=== PATIENT | female | born 1965 | race Caucasian/White ===

== ENCOUNTER → 2018-03-24 11:40 | Outpatient (CLI) | payer OTHER, SELFPAY ==
--- NOTE | 2018-03-24 11:45 | RAD_ITS ---
STUDY: X-RAY - RIGHT WRIST REASON FOR EXAM: Female, 53 years old. Right wrist pain TECHNIQUE: 3 view(s) of the wrist were obtained. COMPARISON: None. FINDINGS: Normal visualized distal radius and ulna. Normal radiocarpal articulation. Normal distal radioulnar articulation. Normal carpal bones. Normal carpal articulations. Normal carpometacarpal articulation of the thumb. Normal second through fifth carpometacarpal articulations. Normal visualized metacarpal bones. The soft tissue structures are unremarkable. RAD/Wrist min 3 Views IMPRESSION: Normal x-ray examination of the wrist. Electronically Signed: David Arango DO at 13:05 EST Tel , Service support ,
== END ==
PROVIDERS: Family Provider Family Medicine; PCP Family Medicine; Referring Provider Family Medicine; Visit Provider Family Medicine
DX: M25.531 Pain in right wrist (principal)
CPT/HCPCS: 73110

== ENCOUNTER → 2018-04-23 14:31 | Outpatient (CLI) | payer OTHER, SELFPAY ==
[2017-03-05 14:44] VITALS: BMI 26.2
--- NOTE | 2018-04-23 14:35 | BI_ITS ---
MAMMOGRAPHY - BILATERAL SCREENING REASON FOR EXAM: Female, 53 years old. Routine annual screening examination. PERTINENT HISTORY: Mother with breast cancer. TECHNIQUE: Digital bilateral breast carol (3D mammographic acquisition) in the CC and MLO projections. 2-D mediolateral oblique (MLO) and craniocaudad (CC) views of both breasts were obtained. CAD: Full Field Digital Mammography with Computer Added Detection was performed. COMPARISON: Comparison is made with prior study dated December 10, 2016 and November 08, 2015. FINDINGS: Breast Composition: The breasts are extremely dense, which lowers the sensitivity of mammography. There are no dominant masses or suspicious calcifications. Previously seen 1.9 cm x 2.2 cm nodule in the deep slightly upper lateral portion of the right breast is not seen at this time. No other significant abnormalities are identified. BI/SCREENING MAMM (CAD), BILAT IMPRESSION: Stable bilateral screening mammogram. Yearly follow-up mammogram recommended. (A) ASSESSMENT CATEGORY: BIRADS Category 2: Benign. A letter regarding these results will be sent to the patient by the facility within 30 days. Approximately 10% of breast cancers are not detected by mammography. A normal mammogram should not delay biopsy of a clinically suspicious abnormality. [id number] Electronically Signed: Sriram Jean MD at 9:15 EST , Service support ,
== END ==
PROVIDERS: Family Provider Family Medicine; PCP Family Medicine; Referring Provider Family Medicine; Visit Provider Family Medicine
DX: Z12.31 Encounter for screening mammogram for malignant neoplasm of breast (principal)
CPT/HCPCS: 77063; 77067

== ENCOUNTER → 2019-04-25 07:56 | Outpatient (CLI) | payer OTHER, SELFPAY ==
--- NOTE | 2019-04-25 07:59 | BI_ITS ---
MAMMOGRAPHY - BILATERAL SCREENING REASON FOR EXAM: Female, 54 years old. Routine annual screening examination. PERTINENT HISTORY: Non-contributory. Prior right breast cyst aspiration. TECHNIQUE: Digital bilateral breast gumaro (3D mammographic acquisition) in the CC and MLO projections. 2-D mediolateral oblique (MLO) and craniocaudad (CC) views of both breasts were obtained. CAD: Full Field Digital Mammography with Computer Added Detection was performed. COMPARISON: Comparison is made with prior study dated April 23, 2018 and December 10, 2006 FINDINGS: Breast Composition: The breasts are extremely dense, which lowers the sensitivity of mammography. There are no dominant masses or suspicious calcifications. No other significant abnormalities are identified. There has been no significant change since the prior study. BI/SCREEN MAMM (CAD) W/GUMARO BILAT IMPRESSION: Stable bilateral screening mammogram. Yearly follow-up mammogram recommended. (A) ASSESSMENT CATEGORY: BIRADS Category 1: Negative. A letter regarding these results will be sent to the patient by the facility within 30 days. Approximately 10% of breast cancers are not detected by mammography. A normal mammogram should not delay biopsy of a clinically suspicious abnormality. [id number] Electronically Signed: Sriram Jean, at 9:55 EST , Service support ,
== END ==
PROVIDERS: Family Provider Family Medicine; PCP Family Medicine; Referring Provider Family Medicine; Visit Provider Family Medicine
DX: Z12.31 Encounter for screening mammogram for malignant neoplasm of breast (principal)
CPT/HCPCS: 77063; 77067

== ENCOUNTER → 2019-10-19 14:33 | Outpatient (CLI) | payer OTHER, SELFPAY ==
[2017-03-05 14:44] VITALS: BMI 26.2
[2019-10-19 17:56] LABS: Anion Gap 5 (5-15); BUN 17 mg/dL (7-18); BUN/Creat Ratio 24.1 RATIO (10-20); Calcium,Total 9.4 mg/dL (8.5-10.1); Chloride 103 mmol/L (98-107); EST Glomerular Filtration Rate 92 mL/min (>60); Est Glom Filt Rate - Afr Amer 112 mL/min (>60); Glucose 98 mg/dL (74-106); Potassium 3.7 mmol/L (3.5-5.1); Sodium Level 137 mmol/L (136-145)
== END ==
PROVIDERS: PCP Family Medicine; Referring Provider Family Medicine; Visit Provider Family Medicine
DX: R03.0 Elevated blood-pressure reading, without diagnosis of hypertension (principal)
CPT/HCPCS: 36415; 80048

== ENCOUNTER → 2019-11-16 16:53 | Outpatient (CLI) | payer OTHER, SELFPAY ==
[2017-03-05 14:44] VITALS: BMI 26.2
[2019-11-16 19:04] LABS: T4 Total, Thyroxin 6.3 ug/dL (4.8-13.9)
== END ==
PROVIDERS: PCP Family Medicine; Referring Provider Family Medicine; Visit Provider Family Medicine
DX: F41.0 Panic disorder [episodic paroxysmal anxiety] (principal)
CPT/HCPCS: 36415; 84436; 84443

== ENCOUNTER → 2020-02-22 | Outpatient (CLI) | payer OTHER, SELFPAY ==
[2017-03-05 14:44] VITALS: BMI 26.2
== END | disposition home or self-care (01) ==
PROVIDERS: PCP Family Medicine; Referring Provider Family Medicine; Visit Provider Family Medicine
DX: J20.9 Acute bronchitis, unspecified (principal)
CPT/HCPCS: 87635; U0003

== ENCOUNTER → 2020-04-05 13:07 | Outpatient (CLI) | payer OTHER, SELFPAY ==
[2017-03-05 14:44] VITALS: BMI 26.2
--- NOTE | 2020-04-05 13:10 | RAD_ITS ---
STUDY: X-RAY CHEST REASON FOR EXAM: Female, 55 years old. Cough. Acute bronchitis. TECHNIQUE: PA and lateral views of the chest. COMPARISON: 03/06/2017. FINDINGS: The lungs are well expanded. There is mild perihilar bronchial thickening. There is no demonstrated pleural abnormality. Normal size heart. Normal mediastinum and diego. Normal visualized pulmonary arteries. Normal visualized aortic arch and descending thoracic aorta. Normal visualized thoracic spine. Normal visualized ribs, clavicles, and shoulders. There is no demonstrated abnormality of the visualized soft tissue structures of the upper abdomen. RAD/Chest PA and Lateral IMPRESSION: Bronchitis versus reactive airway disease. Electronically Signed: Billy Wesley DO at 19:47 EST Tel [phone], Service support ,
== END ==
LOC: MTRAD 13:09
PROVIDERS: PCP Family Medicine; Visit Provider Family Medicine
DX: J20.9 Acute bronchitis, unspecified (principal)
CPT/HCPCS: 71046

== ENCOUNTER → 2020-04-19 | Outpatient (CLI) | payer OTHER, SELFPAY | END | disposition home or self-care (01) | LOC: LABSPEC 11:11 | PROVIDERS: PCP Family Medicine; Referring Provider Family Medicine; Visit Provider Family Medicine | DX: R05 Cough (principal) | CPT/HCPCS: 87070; 87205 ==

== ENCOUNTER 2020-06-14 08:06 | Outpatient (RCR) | payer OTHER, SELFPAY ==
[2017-03-05 14:44] VITALS: BMI 26.2
[2020-06-14] MEDS: COVID-19 VACC, MRNA(PFIZER)/PF 30 MCG/0.3 ML SYRINGE IM (08:14)
[2020-07-05] MEDS: COVID-19 VACC, MRNA(PFIZER)/PF 30 MCG/0.3 ML SYRINGE IM (08:02)
== END 2020-06-14 23:59 ==
LOC: IMMUN 08:06
PROVIDERS: PCP Family Medicine; Visit Provider Family Medicine
DX: Z23 Encounter for immunization (principal)
CPT/HCPCS: 0001A; 0002A; 91300

== ENCOUNTER → 2020-08-09 07:56 | Outpatient (CLI) | payer OTHER, SELFPAY ==
--- NOTE | 2020-08-09 07:57 | BI_ITS ---
MAMMOGRAPHY - BILATERAL SCREENING REASON FOR EXAM: Female, 55 years old. Routine annual screening examination. PERTINENT HISTORY: Mother with breast cancer. TECHNIQUE: Digital bilateral breast carol (3D mammographic acquisition) in the CC and MLO projections. 2-D mediolateral oblique (MLO) and craniocaudad (CC) views of both breasts were obtained. CAD: Full Field Digital Mammography with Computer Added Detection was performed. COMPARISON: Comparison is made with prior study dated 10/24/2019 and 04/23/2018. FINDINGS: Breast Composition: The breasts are heterogeneously dense, which may obscure small masses. There are no dominant masses or suspicious calcifications. No other significant abnormalities are identified. There has been no significant change since the prior study. BI/SCREENING MAMM (CAD), BILAT IMPRESSION: Stable bilateral screening mammogram. Yearly follow-up mammogram recommended. (A) ASSESSMENT CATEGORY: BIRADS Category 1: Negative. A letter regarding these results will be sent to the patient by the facility within 30 days. Approximately 10% of breast cancers are not detected by mammography. A normal mammogram should not delay biopsy of a clinically suspicious abnormality. [id number] Electronically Signed: Sriram Jean MD at 8:59 EDT , Service support ,
== END ==
PROVIDERS: PCP Family Medicine; Referring Provider Family Medicine; Visit Provider Family Medicine
DX: Z12.31 Encounter for screening mammogram for malignant neoplasm of breast (principal); Z80.3 Family history of malignant neoplasm of breast
CPT/HCPCS: 77067

== ENCOUNTER → 2021-09-17 | Outpatient (CLI) | payer OTHER, SELFPAY ==
[2021-09-17 09:51] LABS: Absolute Lymphocyte Count 1.52 X10^3/uL (0.83-4.51); Absolute Neutrophil Count 3.5 X10^3/uL (2.0-7.7); Basophil# 0.02 X10^3/uL; Basophil% 0.4 % (0-1); Eosinophil# 0.02 X10^3/uL; Eosinophils% 0.4 % (0-5); Hematocrit 39.5 % (37-47); Hemoglobin 13.6 g/dL (12.0-15.0); Lymphocyte # 1.52 X10^3/ul (0.83-4.51); Lymphocyte % 27.8 % (19-41); Mean Corp Hgb Conc 34.4 g/dL (32-36); Mean Corpuscular Volume 92.9 fL (81-99); Mean Platelet Vol. 9.2 fl (6.2-12.0); Monocyte# 0.37 X10^3/uL; Monocyte% 6.8 % (0-10); NRBC Flagged by Analyzer 0 % (0-5); Neutrophil # 3.52 X10^3/uL (2.7-7.7); Neutrophil % 64.4 % (47-70); Platelet Count 268 K/mm3 (150-450); RBC Distribution Width CV 12.9 % (11.6-14.6); RBC Distribution Width SD 43.8 fl (35.1-43.9); Red Blood Count 4.25 M/mm3 (4.2-5.4); White Blood Count 5.5 K/mm3 (4.4-11.0)
[2021-09-17 10:25] LABS: Vitamin B12 271 pg/mL (211-911); Vitamin D,25 Hydroxy 29.7 ng/mL
[2021-09-17 10:34] LABS: ALB/GLOB Ratio 1.1 RATIO (0.9-2.4); AST(SGOT) 23 U/L (15-37); Alanine Aminotransfer ALT/SGPT 31 U/L (13-56); Albumin, Serum 3.9 g/dL (3.2-5.0); Alkaline Phosphatase 35 U/L (45-117); Anion Gap 9 (5-15); BUN 11 mg/dL (7-18); BUN/Creat Ratio 16.2 RATIO (10-20); Calcium,Total 9.4 mg/dL (8.5-10.1); Chloride 103 mmol/L (98-107); Cholesterol 184 mg/dL (200); Creatinine, Serum 0.68 mg/dL (0.55-1.02); EST Glomerular Filtration Rate 95 mL/min (>60); Est Glom Filt Rate - Afr Amer 115 mL/min (>60); Globulin 3.6 g/dL (2.2-4.2); Glucose 97 mg/dL (74-106); High Density Lipoprotein 80 mg/dL; Protein, Total 7.5 g/dL (6.4-8.2); Sodium Level 138 mmol/L (136-145); Thyroid Stim Hormone (TSH) 2.53 uIU/mL (0.358-3.74); Triglycerides 146 mg/dL; Very Low Density Lipoprotein 29 mg/dL (5-40)
== END | disposition home or self-care (01) ==
LOC: MFPLAB 08:54
PROVIDERS: PCP Family Medicine; Referring Provider Family Medicine; Visit Provider Nurse Practitioner Family
DX: E78.5 Hyperlipidemia, unspecified (principal); R53.83 Other fatigue
CPT/HCPCS: 36415; 80053; 80061; 82306; 82607; 84443; 85025

== ENCOUNTER → 2021-09-27 | Outpatient (CLI) | payer OTHER, SELFPAY ==
--- NOTE | 2021-09-27 07:50 | BI_ITS ---
MAMMOGRAPHY - BILATERAL SCREENING REASON FOR EXAM: Female, 56 years old. Routine annual screening examination. PERTINENT HISTORY: Mother with breast cancer. TECHNIQUE: Digital bilateral breast gumaro (3D mammographic acquisition) in the CC and MLO projections. 2-D mediolateral oblique (MLO) and craniocaudad (CC) views of both breasts were obtained. CAD: Full Field Digital Mammography with Computer Added Detection was performed. COMPARISON: Comparison is made with prior study dated 08/09/2020 and 04/25/2019. FINDINGS: Breast Composition: The breasts are extremely dense, which lowers the sensitivity of mammography. There are no dominant masses or suspicious calcifications. No other significant abnormalities are identified. There has been no significant change since the prior study. BI/SCRN MAMM (CAD)W/GUMARO BILAT IMPRESSION: Stable bilateral screening mammogram. Yearly follow-up mammogram recommended. (A) ASSESSMENT CATEGORY: BIRADS Category 1: Negative. A letter regarding these results will be sent to the patient by the facility within 30 days. Approximately 10% of breast cancers are not detected by mammography. A normal mammogram should not delay biopsy of a clinically suspicious abnormality. [id number] Electronically Signed: Sriram Jean MD at 8:34 EDT ,
== END | disposition home or self-care (01) ==
LOC: OPBI 07:49
PROVIDERS: PCP Family Medicine; Referring Provider Family Medicine; Visit Provider Family Medicine
DX: Z12.31 Encounter for screening mammogram for malignant neoplasm of breast (principal); Z80.3 Family history of malignant neoplasm of breast
CPT/HCPCS: 77063; 77067

== ENCOUNTER → 2023-01-16 | Outpatient (CLI) | payer OTHER, SELFPAY ==
--- NOTE | 2023-01-16 07:56 | BI_ITS ---
MAMMOGRAPHY - BILATERAL SCREENING REASON FOR EXAM: Female, 57 years old. Routine annual screening examination. PERTINENT HISTORY: Mother with breast cancer. TECHNIQUE: Digital bilateral breast gumaro (3D mammographic acquisition) in the CC and MLO projections. 2-D mediolateral oblique (MLO) and craniocaudad (CC) views of both breasts were obtained. CAD: Full Field Digital Mammography with Computer Added Detection was performed. COMPARISON: Comparison is made with prior study dated September 27, 2021 and August 09, 2020. FINDINGS: Breast Composition: The breasts are extremely dense, which lowers the sensitivity of mammography. There are no dominant masses or suspicious calcifications. No other significant abnormalities are identified. There has been no significant change since the prior study. BI/SCRN MAMM (CAD)W/GUMARO BILAT IMPRESSION: Stable bilateral screening mammogram. Yearly follow-up mammogram recommended. (A) ASSESSMENT CATEGORY: BIRADS Category 1: Negative. A letter regarding these results will be sent to the patient by the facility within 30 days. Approximately 10% of breast cancers are not detected by mammography. A normal mammogram should not delay biopsy of a clinically suspicious abnormality. [id number] Electronically Signed: Sriram Jean MD at 10:43 EDT ,
== END | disposition home or self-care (01) ==
PROVIDERS: PCP Family Medicine; Referring Provider Family Medicine; Visit Provider Family Medicine
DX: Z12.31 Encounter for screening mammogram for malignant neoplasm of breast (principal); Z80.3 Family history of malignant neoplasm of breast
CPT/HCPCS: 77063; 77067

== ENCOUNTER → 2024-01-12 | Outpatient (CLI) | payer OTHER, SELFPAY ==
[2024-01-12 10:54] LABS: AST(SGOT) 11 U/L (15-37); Alanine Aminotransfer ALT/SGPT 19 U/L (13-56); Cholesterol 190 mg/dL (200); High Density Lipoprotein 80 mg/dL; Triglycerides 141 mg/dL; Very Low Density Lipoprotein 28 mg/dL (5-40)
== END | disposition home or self-care (01) ==
LOC: MTLAB 08:05
PROVIDERS: PCP Family Medicine; Referring Provider Family Medicine; Visit Provider Family Medicine
DX: E78.5 Hyperlipidemia, unspecified (principal)
CPT/HCPCS: 36415; 80061; 84450; 84460

== ENCOUNTER → 2024-01-18 | Outpatient (CLI) | payer OTHER, SELFPAY ==
--- NOTE | 2024-01-18 07:42 | BI_ITS ---
MAMMOGRAPHY - BILATERAL SCREENING REASON FOR EXAM: Female, 58 years old. Routine annual screening examination. PERTINENT HISTORY: Mother with breast cancer. Uncle with breast cancer. TECHNIQUE: Digital bilateral breast gumaro (3D mammographic acquisition) in the CC and MLO projections. 2-D mediolateral oblique (MLO) and craniocaudad (CC) views of both breasts were obtained. CAD: Full Field Digital Mammography with Computer Added Detection was performed. COMPARISON: Comparison is made with prior study dated January 16, 2023 and September 27, 2021. FINDINGS: Breast Composition: The breasts are extremely dense, which lowers the sensitivity of mammography. There are no dominant masses or suspicious calcifications. No other significant abnormalities are identified. There has been no significant change since the prior study. BI/SCRN MAMM (CAD)W/GUMARO BILAT IMPRESSION: Stable bilateral screening mammogram. Yearly follow-up mammogram recommended. (A) ASSESSMENT CATEGORY: BIRADS Category 1: Negative. A letter regarding these results will be sent to the patient by the facility within 30 days. Approximately 10% of breast cancers are not detected by mammography. A normal mammogram should not delay biopsy of a clinically suspicious abnormality. [id number] Electronically Signed: Sriram Jean MD at 11:03 EDT ,
== END | disposition home or self-care (01) ==
LOC: OPBI 07:42
PROVIDERS: PCP Family Medicine; Referring Provider Family Medicine; Visit Provider Family Medicine
DX: Z12.31 Encounter for screening mammogram for malignant neoplasm of breast (principal)
CPT/HCPCS: 77063; 77067

== ENCOUNTER 2024-10-09 03:36 | Emergency (ER) | payer OTHER, SELFPAY ==
[2024-10-09 03:36] VITALS: BP 194/88; PULSE 94; RESP 16; TEMP 36.6; O2SAT 99; BMI 29.2
--- NOTE | 2024-10-09 03:38 | EDS_ITS ---
HPI History of Present Illness Chief Complaint: Allergic Reaction Narrative Narrative: Chief complaint and HPI: Urticaria and allergic reaction. 59-year-old female with past medical history of anxiety, depression, fibromyalgia presents for evaluation of urticaria and allergic reaction. Patient states that she woke up this evening itching. States she realized she had hives all over her body. Triage note states that she felt like her throat is tightening however she denies this to me. She states instead she feels chest tightness. She denies any difficulty swallowing, difficulty tolerating secretions, hoarseness, wheezing, stridor, nausea, vomiting, abdominal pain. Patient denies any skin care products or soaps. Denies any new contact with plants or animals. Review of systems: See HPI Medications: As listed on the chart Allergies: As listed on the chart PFSH: Per chart Vital signs: As listed on the chart. Reviewed. Physical exam: Gen: A&O x3, anxious Head: Normocephalic, atraumatic Eyes: No sclera icterus, conjunctiva clear, PERRL, EOMI ENT: Moist mucous membranes, posterior oropharynx unremarkable without erythema or swelling, uvula midline, tonsils not enlarged, tongue not enlarged, no submandibular swelling, tolerating secretions Neck: Trachea midline, No JVD, Full ROM, no swelling CV: RRR, no murmurs, no peripheral edema Resp: Lungs CTA BL, no w/r/c, no stridor GI: Abd soft, non-distended, non-tender, no r/r/g Musc: Full ROM, no deformity Skin: Warm, dry, urticaria diffusely on the body Neuro: Alert, oriented, grossly intact, sensation intact Psych: Cooperative, appropriate mood and affect [facility] Home Medications ?Medication ?Instructions ?Recorded ?Last Taken ?Type fluoxetine 20 mg capsule 20 mg PO DAILY 07/02/16 12/0 10/13 08:00 History multivitamin (Daily Multiple 1 ea PO DAILY 02/26/17 Un known History tablet) docusate sodium 100 mg capsule 100 mg PO BID #30 caps 03/05/17 Unknown Rx ibuprofen 800 mg tablet 800 mg PO TID PRN PRN Cramp #60 03/05/17 Unknown Rx tabs oxycodone-acetaminophen 5 mg-325 1 - 2 tab PO Q4H PRN PRN Pain #30 03/05/17 Unknown Rx mg tablet tabs phenazopyridine 100 mg tablet 100 mg PO DAILY 03/05/17 03/05/17 08:00 History epinephrine 0.3 mg/0.3 mL 0.3 mg (0.3 mL) IM Q10M PRN PRN 10/09/24 Unknown Rx injection, auto-injector (EpiPen anaphylaxis 1 day #2 ea 2-Nikunj) famotidine 20 mg tablet (Pepcid) 20 mg PO DAILY 5 days #5 tabs 10/09/24 Unknown Rx prednisone 20 mg tablet 40 mg (2 x 20 mg) PO DAILY 5 days 10/09/24 Unknown Rx #10 TABLETS Allergy/AdvReac Type Severity Reaction Status Date / Time No Known Allergies Allergy Verified 02/26/17 09:36 Social History Smoking Status: Never smoker EXAM Physical Exam Const Vital Signs: 10/09/24 03:36 10/09/24 04:36 10/09/24 05:00 Temperature 97.9 F Temperature Source Oral Pulse Rate 94 107 H 78 Respiratory Rate 16 23 H 16 Blood Pressure 194/88 H 153/73 H 139/58 H Blood Pressure Mean 123 99 85 Pulse Ox 99 95 97 Oxygen Delivery Method Room Air Room Air Room Air 10/09/24 06:00 10/09/24 06:00 Temperature 97.8 F Temperature Source Pulse Rate 78 64 Respiratory Rate 18 18 Blood Pressure 138/64 H 134/78 H Blood Pressure Mean 88 96 Pulse Ox 98 99 Oxygen Delivery Method Room Air MDM MDM MDM Narrative Medical decision making narrative: 59-year-old female with past medical history of anxiety, depression, fibromyalgia presents for evaluation of urticaria and allergic reaction. Patient states that she woke up this evening itching. States she realized she had hives all over her body. Associated symptoms chest tightness. On presentation, patient is very anxious. She has diffuse urticaria. Endorsing chest tightness. Otherwise physical exam is negative for nausea, vomiting, wheezing, stridor, angioedema. However given her chest tightness and diffuse urticaria patient will be treated for anaphylaxis with NS bolus, EpiPen, Benadryl, Solu-Medrol, Pepcid. She would be monitored in emergency department. Patient was monitored in our emergency department for over 2 hours. On reevaluation, her urticaria has improved and is almost gone except slightly on her arms. She is not endorsing any chest tightness or other anaphylactic symptoms. Patient is stable to discharge home. She will be given a 5-day prescription for Pepcid and prednisone. Told to take Benadryl as needed. Will prescribe an EpiPen. Recommended that when patient goes home she takes a shower and changes her bedding as we do not know what caused her allergic reaction. Return precautions explained. Follow-up with PCP. She confirmed understanding the plan. Patient stable to discharge home. Impression: 1. Urticaria 2. Allergic reaction concern for mild anaphylaxis reaction Discharge Plan Triage Chief Complaint: Allergic Reaction ED Provider: Dinesh Raygoza Dx/Rx/DC Orders Clinical Impression: Allergic reaction Instructions: Understanding Hives (Urticaria), ED Anaphylaxis Prescriptions: New famotidine [Pepcid] 20 mg tablet 20 mg PO DAILY 5 Days Qty: 5 0RF prednisone 20 mg tablet 40 mg PO DAILY 5 Days Qty: 10 0RF epinephrine [EpiPen 2-Nikunj] 0.3 mg/0.3 mL auto-injector 0.3 mg IM Q10M PRN PRN (Reason: anaphylaxis) 1 Days Qty: 2 0RF Rx Instructions: for 2 doses No Action fluoxetine 20 MG capsule 20 mg PO DAILY multivitamin [Daily Multiple] 1 EACH tablet 1 ea PO DAILY phenazopyridine 100 MG tablet 100 mg PO DAILY Patient Comments: to be taken day of surgery and postop ibuprofen 800 MG tablet 800 mg PO TID PRN PRN (Reason: Cramp) Qty: 60 1RF oxycodone-acetaminophen 1 TABLET tablet 1 - 2 tab PO Q4H PRN PRN (Reason: Pain) Qty: 30 0RF docusate sodium 100 MG capsule 100 mg PO BID Qty: 30 1RF Primary Care Provider: Angela Joseph Referrals: Angela Joseph MD [Primary Care Provider] - 3-5 Days Activity Restrictions/Additional Instructions: Return back to ED if symptoms change or worsen. Follow-up with your primary care physician. You received all of your medication today here in the emergency department, next dose is to start tomorrow. Benadryl as needed for hives. EpiPen as needed. Print Language: Tamazight Disposition Disposition: Home, Self Care Discharge Date/Time: 10/09/24 06:02
[2024-10-09] MEDS: DiphenhydrAMINE 50 MG/ML Syringe IV (03:48)
[2024-10-09] MEDS: Epi Pen (EQUIV) 0.3 MG Syringe IM (03:48)
[2024-10-09] MEDS: 0.9% Normal Saline (1000mL) 1,000 ML 999 ML IV (03:50)
[2024-10-09] MEDS: Famotidine 200 MG/20 ML MDV 20 MG in 0.9% Normal Saline (Pres. free 8 ML 300 MG IV (04:08)
[2024-10-09 04:36] VITALS: BP 153/73; PULSE 107; RESP 23; O2SAT 95
[2024-10-09 05:00] VITALS: BP 139/58; PULSE 78; RESP 16; O2SAT 97
--- OUTSIDE RECORDS SUMMARY | 2024-10-09 05:19 | XMS RPT_ITS | CCD ---
Author Organization [facility] Inform ion Partnership [facility] Care Team Providers Care Immigration Judge Name Role Phone Angela Joseph Attending Unavailable Angela Joseph Referring Unavailable Angela Joseph Primary Care Unavailable Angela Joseph Referring Unavailable Angela Joseph Primary Care Unavailable Angela Joseph Attending Unavailable Medications Current Medications Medication Drug Class(es) Dates Sig (Normalized) Sig (Original) acetaminophen 325 mg / oxyCODONE hydrochloride 5 mg oral tablet (4 sources) Opioid Agonist Start: 03-05-2017 take 1 tablet by mouth every four hours as needed Oxycodone-Acetamin ophen Active 1 - 2 TABLET PO EVERY 4 HOURS NEEDED March 05, 2017 1:00am docusate sodium 100 mg oral capsule (4 sources) Start: 03-05-2017 take 100 mg by mouth twice daily Docusate Sodium Active 100 MG PO TWICE A DAY March 05, 2017 1:00am FLUoxetine 20 mg oral capsule (4 sources) Serotonin Reuptake Inhibitor Start: 07-02-2016 take 20 mg by mouth once daily Fluoxetine Active 20 MG PO DAILY July 02, 2016 12:00am ibuprofen 800 mg oral tablet (4 sources) Nonsteroidal Anti-inflammatory Drug Start: 03-05-2017 take 800 mg by mouth three times daily as needed Ibuprofen Active 800 MG PO 3 TIMES DAILY NEEDED March 05, 2017 1:00am Multivitamin (Daily Multiple Vitamin) 1 EACH tablet (4 sources) Start: 02-26-2017 take 1 tablet by mouth once daily Multivitamin (Daily Multiple Vitamin) 1 EACH tablet Active 1 EACH PO DAILY February 26, 2017 12:00am Start: 02-26-2017 take 1 tablet by elisha once daily Multivitamin (Daily Multiple Vitamin) 1 EACH tablet Active 1 EACH PO DAILY February 26, 2017 1:00am phenazopyridine hydrochloride 100 mg oral tablet (4 sources) Start: 03-05-2017 take 100 mg by mouth once daily Phenazopyridine Active 100 MG PO DAILY March 05, 2017 1:00am Problems Problem Classification Problem Date Documented Da te Episodic/Chronic Anxiety disorders (4 sources) Mixed anxiety and depressive disorder; Translations: [Anxiety disorder, unspecified] 03-06-2017 Chronic Disorders of lipid metabolism (1 source) Hyperlipidemia, unspecified; Translations: [Hyperlipidemia, unspecified] Onset: 02-04-2024 Chronic Other connective tissue disease (4 sources) Fibromyalgia; Translations: [Fibromyalgia] 03-06-2017 Episodic Other female genital disorders (4 sources) Dysplasia of cervix; Translations: [Dysplasia of cervix uteri, unspecified] 03-06-2017 Episodic Other screening for suspected conditions (not mental disorders or infectious disease) (1 source) Encounter for screening mammogram for malignant neoplasm of breast; Translations: [Encounter for screening mammogram for malignant neoplasm of breast] Onset: 02-08-2024 Episodic Results Test Name Value Interpretation Reference Range Facil ity SCRN MAMM (CAD)W/GUMARO BILATo n 01-18-2024 SCRN MAMM (CAD)W/GUMARO BILAT [facility] Imaging Services [address] [place] [id number] SCRN MAMM (CAD)W/GUMARO BILAT MR#: [id number] Acct: [id number] Name: ARLETH CHANDLER Rep #: [id number] : 1965 F 58 From: Sriram jonas MD PCP: Dr. Angela Joseph MD Status: [facility] Study: SCRN MAMM (CAD)W/GUMARO BILAT Date of Exam: 12/29 04/22 Exam# [id number] Ordering Dr: Angela Joseph MD -[id number] MAMMOGRAPHY - BILATERAL SCREENING REASON FOR EXAM: Female, 58 years old. Routine annual screening examination. PERTINENT HISTORY: Mother with breast cancer. Uncle with breast cancer. TECHNIQUE: Digital bilateral breast gumaro (3D mammographic acquisition) in the CC and MLO projections. 2-D mediolateral oblique (MLO) and craniocaudad (CC) views of both breasts were obtained. CAD: Full Field Digital Mammography with Computer Added Detection was performed. COMPARISON: Comparison is made with prior study dated January 16, 2023 and September 27, 2021. FINDINGS: Breast Composition: The breasts are extremely dense, which lowers the sensitivity of mammography. There are no dominant masses or suspicious calcifications. No other significant abnormalities are identified. There has been no significant change since the prior study. BI/SCRN MAMM (CAD)W/GUMARO BILAT IMPRESSION: Stable bilateral screening mammogram. Yearly follow-up mammogram recommended. (A) ASSESSMENT CATEGORY: BIRADS Category 1: Negative. A letter regarding these results will be sent to the patient by the facility within 30 days. Approximately 10% of breast cancers are not detected by mammography. A normal mammogram should not delay biopsy of a clinically suspicious abnormality. [id number] Electronically Signed: Sriram Jean MD at 11:03 EDT Reading Location ID and State: [address] [place] [address] , Service support , CC: Dr. Angela Joseph MD Crystalizer Operator: Signed Normal [facility] AST(SGOT)on 01-12-2024 AST [Catalytic activity/Vol] 11 U/L Low 15-37 [facility] Comment on above: Performed By: #### L 501.4405, L501.4100, L500.4100 #### [facility] [address] [place], [place], [address] Alanine Aminotransferas (SGP T)on 01-12-2024 ALT [Catalytic activity/Vol] 19 U/L Normal 13-56 [facility] Comment on above: Performed By: #### L 501.4405, L501.4100, L500.4100 #### [facility] [address] [place], [address] Lipid Profileon 01-12-2024 Cholesterol [Mass/Vol] 190 mg/dL Normal 200 [facility] Comment on above: Result Comment: <200 mg/dL Desirable 200-240 mg/dL Borderline >240 mg/dL High Risk Performed By: #### L 501.4405, L501.4100, L500.4100 #### [facility] [address] [place], [address] Cholesterol in HDL [Mass/Vol] 80 mg/dL Normal [facility] Comment on above: Result Comment: The drugs N-Acetylcysteine and Metamizole may falsely depress this assay. Reference Range HDL <40 mg/dL Low HDL Cholesterol HDL >or= 60 mg/dL High HDL Cholesterol Performed By: #### L 501.4405, L501.4100, L500.4100 #### [facility] [address] [place], [address] Cholesterol in LDL [Mass/Vol] 82 mg/dL Normal 0-130 [facility] Comment on above: Performed By: #### L 501.4405, L501.4100, L500.4100 #### [facility] [address] [place], [address] Cholesterol in VLDL [Mass/Vol] 28 mg/dL Normal 5-40 [facility] Comment on above: Performed By: #### L 501.4405, L501.4100, L500.4100 #### [facility] [address] [place], [address] Triglyceride [Mass/Vol] 141 mg/dL Normal [facility] Comment on above: Result Comment: The drugs N-Acetylcysteine and Metamizole may falsely depress this assay. Serum Triglycerides Reference Interval Normal <150 mg/dL Borderline high 150 - 199 mg/dL High 200 - 499 mg/dL Very High > or = 500 mg/dL Performed By: #### L 501.4405, L501.4100, L500.4100 #### [facility] [address] [place], [address] Absolute lymphocyte counton 09-17-2021 Lymphocytes Auto (Unsp spec) [#/Vol] 1.52 10*3/uL 0.83-4.51 [facility] Work Phone: Basophil percentageon 2021 Basophils/100 WBC (Bld) 0.4 % 0-1 [facility] Work Phone: Bilirubin [Mass/Vol] 0.50 mg/dL 0.20-1.00 [facility] Work Phone: Comment on above: For patients on eltr ombopag therapy, use of Dimension [place] TBIL is not recommended. Chloride [Moles/Vol] 103 mmol/L 98-107 [facility] Work Phone: Cholesterol [Mass/Vol] 184 mg/dL <200 [facility] Work Phone: Comment on above: <200 mg/dL Desirable 200-240 mg/dL Borderline >240 mg/dL High Risk Eosinophils/100 WBC (Bld) 0.4 % 0-5 [facility] Work Phone: Glucose [Mass/Vol] 97 mg/dL 74-106 [facility] Work Phone: Neutrophils (Bld) [#/Vol] 3.5 10*3/uL 2.0-7.7 [facility] Work Phone: Neutrophils/100 WBC (Bld) 64.4 % 47-70 [facility] Work Phone: Potassium [Moles/Vol] 4.0 mmol/L 3.5-5.1 [facility] Work Phone: Protein [Mass/Vol] 7.5 g/dL 6.4-8.2 [facility] Work Phone: Sodium [Moles/Vol] 138 mmol/L 136-145 [facility] Work Phone: Triglyceride [Mass/Vol] 146 mg/dL <199 [facility] Work Phone: Comment on above: The drugs N-Acetylcy steine and Metamizole may falsely depress this assay.Serum Triglycerides Reference Interval Normal <150 mg/dL Borderline high 150 - 199 mg/dL High 200 - 499 mg/dL Very High > or = 500 mg/dL WBC (Bld) [#/Vol] 5.5 10*3/uL 4.4-11.0 [facility] Work Phone: Blood erythrocytes count (nu mber/volume)on 09-17-2021 RBC (Bld) [#/Vol] 4.25 10*6/uL 4.2-5.4 [facility] Work Phone: Blood hemoglobin measurement (mass/volume)on 09-17-2021 Hemoglobin (Bld) [Mass/Vol] 13.6 g/dL 12.0-15.0 [facility] Work Phone: Blood lymphocytes/100 leukoc yteson 09-17-2021 Lymphocytes/100 WBC (Bld) 27.8 % 19-41 [facility] Work Phone: Blood monocytes/100 leukocyt eson 09-17-2021 Monocytes/100 WBC (Bld) 6.8 % 0-10 [facility] Work Phone: Blood platelet mean volumeon 09-17-2021 Platelet mean volume (Bld) [Entitic vol] 9.2 fL 6.2-12.0 [facility] Work Phone: Determination of erythrocyte mean corpuscular volume (MCV)on 09-17-2021 MCV (RBC) [Entitic vol] 92.9 fL 81-99 [facility] Work Phone: Hematocrit Auto (Bld) [Volum e fraction]on 09-17-2021 Hematocrit (Bld) [Volume fraction] 39.5 % 37-47 [facility] Work Phone: Laboratory - Chemistry and C hemistry - challengeon 09-17-2021 ALP [Catalytic activity/Vol] 35 U/L 45-117 [facility] Work Phone: ALT [Catalytic activity/Vol] 31 U/L 13-56 [facility] Work Phone: CO2 [Moles/Vol] 26.0 mmol/L 21.0-32.0 [facility] Work Phone: Cobalamin (Vitamin B12) [Mass/Vol] 271 pg/mL 211-911 [facility] Work Phone: Globulin (S) [Mass/Vol] 3.6 g/dL 2.2-4.2 [facility] Work Phone: Urea nitrogen/Creatinine [Mass ratio] 16.2 mg/mg 10-20 [facility] Work Phone: Laboratory - Hematology and Cell countson 09-17-2021 Erythrocyte distribution width (RBC) [Entitic vol] 43.8 fL 35.1-43.9 [facility] Work Phone: Erythrocyte distribution width (RBC) [Ratio] 12.9 % 11.6-14.6 [facility] Work Phone: Immature granulocytes/100 WBC (Bld) 0.200 % 0.0-0.9 [facility] Work Phone: Comment on above: IG% - Immature Granu locytes (promyelocytes, myelocytes and metamyelocytes) > 1% indicates that a LEFT SHIFT is Present. MCH (RBC) [Entitic mass] 32.0 pg 27.0-32.0 [facility] Work Phone: Nucleated RBC/100 WBC (Bld) [Ratio] 0 % 0-5 [facility] Work Phone: MCHC Auto (RBC) [Mass/Vol]on 09-17-2021 MCHC (RBC) [Mass/Vol] 34.4 g/dL 32-36 [facility] Work Phone: No Panel Informationon 09-17 Estimated GFR (MDRD) Amer 115 mL/min >60 [facility] Work Phone: Comment on above: GFR Calc Estimated GFR (MDRD) Non-Af Amer 95 mL/min >60 [facility] Work Phone: Comment on above: Non- GFR Calc Thyroid Stimulating Hormone (TSH) 2.53 uIU/mL 0.358-3.74 [facility] Work Phone: Vitamin D 25-Hydroxy 29.7 ng/mL [facility] Work Phone: Comment on above: Vitamin D 25(OH) Sta tus Range Deficiency <20 ng/mL (50nmol/L) Insufficiency 20 - 30 ng/mL (50 - 75 nmol/L) Sufficiency 30 - 100 ng/mL (75 - 250 nmol/L) Toxicity >100 ng/mL (>250 nmol/L) Platelets bldon 09-17-2021 Platelets (Bld) [#/Vol] 268 10*3/uL 150-450 [facility] Work Phone: Serum or plasma albumin demetris urement (mass/volume)on 09-17-2021 Albumin [Mass/Vol] 3.9 g/dL 3.2-5.0 [facility] Work Phone: Serum or plasma albumin/glob ulin mass ratioon 09-17-2021 Albumin/Globulin [Mass ratio] 1.1 {ratio} 0.9-2.4 [facility] Work Phone: Serum or plasma calcium demetris urement (mass/volume)on 09-17-2021 Calcium [Mass/Vol] 9.4 mg/dL 8.5-10.1 [facility] Work Phone: Serum or plasma cholesterol in HDL measurement (mass/volume)on 09-17-2021 Cholesterol in HDL [Mass/Vol] 80 mg/dL >40 [facility] Work Phone: Comment on above: The drugs N-Acetylcy steine and Metamizole may falsely depress this assay. Reference Range HDL <40 mg/dL Low HDL Cholesterol HDL >or= 60 mg/dL High HDL Cholesterol Serum or plasma cholesterol in VLDL measurement (mass/volume)on 09-17-2021 Cholesterol in VLDL [Mass/Vol] 29 mg/dL 5-40 [facility] Work Phone: Serum or plasma creatinine m easurement (mass/volume)on 09-17-2021 Creatinine [Mass/Vol] 0.68 mg/dL 0.55-1.02 [facility] Work Phone: Comment on above: The validity of the calculated GFR & GFRAA in patients over 70 years has not been determined. Clinical correlation is essential. Serum or plasma low density lipoprotein (LDL) cholesterol measurement (mass/volume)on 09-17-2021 Cholesterol in LDL [Mass/Vol] 75 mg/dL 0-130 [facility] Work Phone: Serum or plasma urea nitroge n measurement (mass/volume)on 09-17-2021 Urea nitrogen [Mass/Vol] 11 mg/dL 7-18 [facility] Work Phone: Thin prep Papanicolaou smear with manual screeningon 09-17-2021 Thin prep Papanicolaou smear with manual screening 23 U/L 15-37 [facility] Work Phone: Thin prep Papanicolaou smear with manual screening 9 5-15 [facility] Work Phone: Encounters Encounter Date Encounter Type Care Provider Facility Start: 01-18-2024 End: 01-18-2024 ambulatory Angela S Jolliff Facility:[facility] Start: 01-12-2024 End: 01-12-2024 ambulatory [facility] S Jolliff Facility:[facility] Start: 01-16-2023 End: 01-16-2023 ambulatory [facility] Work Phone: Start: 01-16-2023 End: 01-16-2023 Patient encounter procedure [facility] Work Phone: Start: 09-27-2021 End: 09-27-2021 Patient encounter procedure [facility] Start: 09-17-2021 End: 09-17-2021 Patient encounter procedure [facility] Procedures Date Procedure Procedure Detail Performing Clinician Start: 01-16-2023 Screening mammography Start: 09-27-2021 Screening mammography Immunizations Immunization Date Immunization Notes Care Provider Silvino tran 07-05-2020 Covid (Pfizer) [facility] 06-14-2020 Covid (Pfizer) [facility] Payers Date Payer Category Payer Private Health Insurance [id number] 2023 Self-pay [id number] 2015 Private Health Insurance [id number] Unknown [id number] Unknown [id number] Social History Date Type Detail Facility Start: 03-06-2017 Tobacco smoking status NHIS Unknown if ever smoked [facility] Start: 03-06-2017 Occasional [facility] Start: 03-06-2017 None [facility] Start: 03-06-2017 Spouse/ Signif icant Other [facility] Start: 03-06-2017 Non-smoker [facility] Start: 1965 Sex Assigned At Female [facility] Medical Equipment Procedure Code Equipment Code Equipment Origin al Text Equipment Identifier Dates JOSÉ ANTONIO 3GRM HEMO STAT ABS FDA Start: 03-05-2017 JOSÉ ANTONIO 3GRM HEMO STAT ABS FDA Start: 03-05-2017 JOSÉ ANTONIO 3GRM HEMO STAT ABS FDA Start: 03-05-2017 JOSÉ ANTONIO 3GRM HEMO STAT ABS FDA Start: 03-05-2017 Evaluation note Note Date & Type Note Facility Evaluation note No assessment information availa ble [facility] Work Phone: Family History No Family History Records Found Relationship Condition Age at Onset Recorded Date/T corby Unknown Family History?Cancer, Diabetes Unknown March 06, 2017 10:55am Family History?Cancer, Diabetes Unknown March 06, 2017 10:55am Family History?Diabetes Unknown Dece mber 2016 10:55am Advance Directives No Advanced Directives Records Found Advance Directive Response Recorded Date/ Time Living Will No February 26 017 10:37am Power of Blueprinting Machine Operator No February 26, 2017 10:37am Chief Complaint and Reason for Visit Chief Complaint SCREENING Chief Complaint SCREENING Summary Purpose Additional Source Comments Goals (unrecognized section and content) Goals may be documented in a n alternate sectionGoals may be documented in an alternate sectionGoals may be documented in an alternate sectionGoals may be documented in an alternate section Care Teams (unrecognized sec tion and content) Team Status: Active Member Role Status Dates Dr. Angela Joseph MD Family Provider Active Dr. Angela Joseph MD Primary Care Provider Active Team Status: Inactive Member Role Status Dates Dr. Angela Joseph MD Primary Care Prov ider, Attending Provider, Referring Provider Active INFORMATION SOURCE (unrecogn ized section and content) DATE CREATED AUTHOR 02/10/2024 [facility] FOR RECORDS PERTAINING TO PATIENTS WHO ARE OR HAVE BEEN ENROLLED IN A CHEMICAL DEPENDENCY/SUBSTANCEABUSE PROGRAM, SOME INFORMATION MAY BE OMITTED. This clinical summary was aggregated from multiple sources. Caution should be exercised in using it in the provision of clinical care. This summary normalizes information from multiple sources, and as a consequence, information in this document may materially change the coding, format and clinical context of patient data. In addition, data may be omitted in some cases. CLINICAL DECISIONS SHOULD BE BASED ON THE PRIMARY CLINICAL RECORDS. [employer] provides no warranty or guarantee of the accuracy or completeness of information in this document.
[2024-10-09 06:00] VITALS: BP 134/78; BP 138/64; PULSE 64; PULSE 78; RESP 18; TEMP 36.6; O2SAT 98; O2SAT 99
== END 2024-10-09 06:02 | disposition home or self-care (01) ==
PROVIDERS: Emergency Provider Surgery; PCP Family Medicine; Visit Provider Surgery
DX: T78.2XXA Anaphylactic shock, unspecified, initial encounter (principal); X58.XXXA Exposure to other specified factors, initial encounter; L50.9 Urticaria, unspecified
CPT/HCPCS: 96361; 96372; 96374; 96375; 99283; A4216

== ENCOUNTER 2024-10-09 17:08 | Emergency (ER) | payer OTHER, SELFPAY ==
[2024-10-09 17:08] VITALS: BP 172/90; PULSE 133; RESP 16; TEMP 37; O2SAT 97; BMI 28.3
--- NOTE | 2024-10-09 18:53 | EDS_ITS ---
HPI History of Present Illness Chief Complaint: Allergic Reaction [facility] Home Medications ?Medication ?Instructions ?Recorded ?Last Taken ?Type fluoxetine 20 mg capsule 20 mg PO DAILY 07/02/16 12/0 10/13 08:00 History multivitamin (Daily Multiple 1 ea PO DAILY 02/26/17 Un known History tablet) docusate sodium 100 mg capsule 100 mg PO BID #30 caps 03/05/17 Unknown Rx ibuprofen 800 mg tablet 800 mg PO TID PRN PRN Cramp #60 03/05/17 Unknown Rx tabs oxycodone-acetaminophen 5 mg-325 1 - 2 tab PO Q4H PRN PRN Pain #30 03/05/17 Unknown Rx mg tablet tabs phenazopyridine 100 mg tablet 100 mg PO DAILY 03/05/17 03/05/17 08:00 History epinephrine 0.3 mg/0.3 mL 0.3 mg (0.3 mL) IM Q10M PRN PRN 10/09/24 Unknown Rx injection, auto-injector (EpiPen anaphylaxis 1 day #2 ea 2-Nikunj) famotidine 20 mg tablet (Pepcid) 20 mg PO DAILY 5 days #5 tabs 10/09/24 Unknown Rx prednisone 20 mg tablet 40 mg (2 x 20 mg) PO DAILY 5 days 10/09/24 Unknown Rx #10 TABLETS Allergy/AdvReac Type Severity Reaction Status Date / Time No Known Allergies Allergy Verified 10/09/24 17:08 Social History Smoking Status: Never smoker EXAM Physical Exam Const Vital Signs: 10/09/24 17:08 10/09/24 19:38 10/09/24 20:54 Temperature 98.6 F 98.0 F Temperature Source Oral Pulse Rate 133 H 108 H 107 H Respiratory Rate 16 18 18 Blood Pressure 172/90 H 156/76 H 159/64 H Blood Pressure Mean 117 102 95 Pulse Ox 97 96 96 Oxygen Delivery Method Room Air Room Air MDM MDM MDM Narrative Medical decision making narrative: HISTORY OF PRESENT ILLNESS: Chief complaint: Allergic reaction 59-year-old female history of anxiety, depression, fibromyalgia presents concern for allergic reaction. REVIEW OF SYSTEMS: Pertinent positives: Hives, chest tightness Pertinent negatives: Vomiting, abdominal pain, shortness of breath PHYSICAL EXAM: Nursing triage notes reviewed, Vital signs reviewed Constitutional: please see mdm HENT: MMM Eyes: Pupils equal round and reactive to light, Extraocular muscles intact Neck: No stridor, no JVD, full neck ROM Lungs: Clear to auscultation, No wheezing or rales. No increased work of breathing, no conversational dyspnea, no accessory muscle use, no nasal flaring. No respiratory distress noted Heart: Regular rate and rhythm, No murmurs, No rubs and No gallops, 2+ distal pulses (radial, femoral, posterior tibial) in all extremities Abdomen: Soft, there is no tenderness, rigidity, rebound or guarding, no obvious peritoneal signs, no palpable pulsatile abdominal masses, no auscultated abdominal bruit : No CVAT Extremities: No edema Neuro: No new focal neurological deficits, cranial nerves II through XII intact, 5/5 strength in all present extremities. Intact sensation to light touch in all present extremities, 2+ reflexes bilateral patella tendons. Skin: Diffuse urticaria throughout MEDICAL DECISION MAKING: Chief Complaint: please see HPI External records reviewed: Reviewed prior ED note from today. She was seen approximately 3 in the morning for allergic reaction. Patient was given normal saline bolus, epinephrine, Benadryl, Solu-Medrol and Pepcid. She was monitored for 2 hours. Urticaria improved after the initial treatments. She was discharged home with Pepcid and prednisone Factors affecting care: As per HPI Social determinants of health: none History obtained from others: none Consults: none [facility] Narrative: The patient was initially tachycardic, hypertensive otherwise afebrile and nontoxic-appearing. Patient was initially evaluated myself 2 hours after her initial presentation I considered the following differential diagnosis: Low allergy, anaphylaxis, anaphylactic shock Will give her IM epi, antihistamines No sign of anaphylactic shock. In fact her blood pressure is elevated given chest tightness and urticaria of concern for anaphylaxis. Given symptoms started greater than 4 hours ago she is not required for observation. ALL IMAGES (IF OBTAINED) HAVE BEEN PERSONALLY REVIEWED AND INTERPRETED BY MYSELF. Upon re-evaluation patient blood pressure improved 156/76, pulse improved to 108. Noted improvement in urticaria. Recommended continued antihistamines. Recommended the patient to continue steroids. Recommended as needed epinephrine. Strict return precautions were discussed. The patient and/or family, caregivers express understanding. The patient and/or family, caregivers agrees with the plan. Shared decision making: I will have a discussion with the patient and or visitors regarding risk/benefits of further testing or admission. They will be made aware of of the risk/benefits inherent in this decision they will be given the opportunity to voice understanding. Total critical care time today provided was at least 0 minutes. This excludes separately billable procedures. Critical care time (if documented) is secondary to the patient having high probability of clinically significant/life threatening deterioration in the patient's condition which required my urgent intervention. Impression: 1. Anaphylaxis 2. History of allergic reaction Dispo: Discharge This note was generated with [employer] dictation software. It may contain incorrect words, spelling, and punctuation that were not noted in review of the chart pr ior to signing. Discharge Plan Triage Chief Complaint: Allergic Reaction ED Provider: Shabbir Murphy Dx/Rx/DC Orders Instructions: ED General Allergic Reactions Prescriptions: No Action fluoxetine 20 MG capsule 20 mg PO DAILY multivitamin [Daily Multiple] 1 EACH tablet 1 ea PO DAILY phenazopyridine 100 MG tablet 100 mg PO DAILY Patient Comments: to be taken day of surgery and postop ibuprofen 800 MG tablet 800 mg PO TID PRN PRN (Reason: Cramp) Qty: 60 1RF oxycodone-acetaminophen 1 TABLET tablet 1 - 2 tab PO Q4H PRN PRN (Reason: Pain) Qty: 30 0RF docusate sodium 100 MG capsule 100 mg PO BID Qty: 30 1RF famotidine [Pepcid] 20 mg tablet 20 mg PO DAILY 5 Days Qty: 5 0RF prednisone 20 mg tablet 40 mg PO DAILY 5 Days Qty: 10 0RF epinephrine [EpiPen 2-Nikunj] 0.3 mg/0.3 mL auto-injector 0.3 mg IM Q10M PRN PRN (Reason: anaphylaxis) 1 Days Qty: 2 0RF Rx Instructions: for 2 doses Primary Care Provider: Angela Joseph Referrals: Angela Joseph MD [Primary Care Provider] - Activity Restrictions/Additional Instructions: Thank you for trusting us with your care today! Please Zyrtec or Claritin once daily. As well as Pepcid as much is every 6 hours. You can give yourself a dose of IM epinephrine if your symptoms are unbearable. Please return to the emergency department if your symptoms change or worsen. Specifically of difficulty with breathing or feeling your throat become tight. Please follow with your primary care physician for further outpatient evaluation and management. Print Language: Kenyan Disposition Disposition: Home, Self Care Discharge Date/Time: 10/09/24 20:56
--- OUTSIDE RECORDS SUMMARY | 2024-10-09 19:05 | XMS RPT_ITS | CCD ---
Author Organization [facility] Care Team Providers Care [employer] Operator Name Role Phone Angela Joseph Attending Unavailable Angela Joseph Referring Unavailable Angela Joseph Primary Care Unavailable Angela Joseph Referring Unavailable Angela Joseph Primary Care Unavailable Angela Joseph Attending Unavailable Jake BOYKIN, Dr. Angela Wilcox Primary Care Provider [phone] Dr. Dinesh Raygoza DO Emergency Provider Medications Current Medications Medication Drug Class(es) Dates Sig (Normalized) Sig (Original) acetaminophen 325 mg / oxyCODONE hydrochloride 5 mg oral tablet (5 sources) Opioid Agonist Start: 03-05-2017 Oxycodone-Acetamin ophen 1 TABLET tablet Active 1 - 2 {tbl} PO EVERY 4 HOURS NEEDED as needed for Pain March 05, 2017 1:00am Start: 03-05-2017 take 1 tablet by elisha th every four hours as needed Oxycodone-Acetaminophen Active 1 - 2 TABLET PO EVERY 4 HOURS NEEDED March 05, 2017 1:00am docusate sodium 100 mg oral capsule (5 sources) Start: 03-05-2017 take 1 capsule by mouth twice daily Docusate Sodium 100 MG capsule Active 100 mg PO TWICE A DAY 30 March 05, 2017 1:00am [id number] 0.3 ml EPINEPHrine 1 mg/ml auto-injector (1 source) alpha-Adrenergic Agonist, beta-Adrenergic Agonist, Catecholamine Start: 10-09-2024 Epinephrine (Epipen 2-Nikunj) 0.3 mg/0.3 mL auto-injector Active 0.3 mg IM EVERY 10 MINUTES NEEDED as needed for anaphylaxis 2 October 09, 2024 5:41am for 2 doses famotidine 20 mg oral tablet (1 source) Histamine-2 Receptor Antagonist Start: 10-09-2024 take 1 tablet by mouth once daily Famotidine (Pepcid) 20 mg tablet Active 20 mg PO DAILY 5 5 0 October 09, 2024 12:00am FLUoxetine 20 mg oral capsule (5 sources) Serotonin Reuptake Inhibitor Start: 07-02-2016 take 1 capsule by mouth once daily Fluoxetine 20 MG capsule Active 20 mg PO DAILY July 02, 2016 12:00am ibuprofen 800 mg oral tablet (5 sources) Nonsteroidal Anti-inflammatory Drug Start: 03-05-2017 take 1 tablet by mouth three times daily as needed Ibuprofen 800 MG tablet Active 800 mg PO 3 TIMES DAILY NEEDED as needed for Cramp 60 1 March 05, 2017 1:00am Multivitamin (Daily Multiple Vitamin) 1 EACH tablet (5 sources) Start: 02-26-2017 take 1 tablet by mouth once daily Multivitamin (Daily Multiple Vitamin) 1 EACH tablet Active 1 NMA PO DAILY February 26, 2017 1:00am Start: 02-26-2017 take 1 tablet by elisha th once daily Multivitamin (Daily Multiple Vitamin) 1 EACH tablet Active 1 EACH PO DAILY February 26, 2017 12:00am Start: 02-26-2017 take 1 tablet by elisha th once daily Multivitamin (Daily Multiple Vitamin) 1 EACH tablet Active 1 EACH PO DAILY February 26, 2017 1:00am phenazopyridine hydrochloride 100 mg oral tablet (5 sources) Start: 03-05-2017 take 1 tablet by mouth once daily Phenazopyridine 100 MG tablet Active 100 mg PO DAILY March 05, 2017 1:00am predniSONE 20 mg oral tablet (1 source) Start: 10-09-2024 take 2 tablets by mouth once daily Prednisone 20 mg tablet Active 40 mg PO DAILY 10 5 0 October 09, 2024 12:00am Problems Problem Classification Problem Date Documented Da te Episodic/Chronic Allergic reactions (1 source) Allergic reaction; Translations: [Allergy, unspecified, initial encounter] 10-09-2024 Episodic Anxiety disorders (5 sources) Mixed anxiety and depressive disorder; Translations: [Anxiety disorder, unspecified] 03-06-2017 Chronic Disorders of lipid metabolism (1 source) Hyperlipidemia, unspecified; Translations: [Hyperlipidemia, unspecified] Onset: 02-04-2024 Chronic Other connective tissue disease (5 sources) Fibromyalgia; Translations: [Fibromyalgia] 03-06-2017 Episodic Other female genital disorders (5 sources) Dysplasia of cervix; Translations: [Dysplasia of [...] BILATo n 01-18-2024 SCRN MAMM (CAD)W/GUMARO BILAT [facility] Imaging Services [address] [place] [address] SCRN MAMM (CAD)W/GUMARO BILAT MR#: [id number] Acct: [id number] Name: ARLETH CHANDLER AUGUST Rep #: [id number] : 1965 F 58 From: Sriram jonas MD PCP: Dr. Angela Joseph MD Status: [facility] Study: SCRN MAMM (CAD)W/GUMARO BILAT Date of Exam: 12/29 04/22 Exam# [id number] Ordering Dr: Angela Joseph MD -[id number] MAMMOGRAPHY - BILATERAL SCREENING REASON FOR [...] delay biopsy of a clinically suspicious abnormality. [id number] Electronically Signed: Sriram Jean MD at 11:03 EDT Reading Location ID and State: [address] [place] [address] , Service support , CC: Dr. Angela Joseph MD [facility] Medical Specialist: Signed [facility] AST(SGOT)on 01-12-2024 AST [Catalytic activity/Vol] 11 U/L Low 15-37 [facility] Comment on above: Performed By: #### L 501.4405, L501.4100, L500.4100 #### [facility] [address], [place], [id number] Alanine Aminotransferas (SGP T)on 01-12-2024 ALT [Catalytic activity/Vol] 19 U/L Normal 13-56 [facility] Comment on above: Performed By: #### L 501.4405, L501.4100, L500.4100 #### [facility] [address] [place], [place], [id number] Lipid Profileon 01-12-2024 Cholesterol [Mass/Vol] 190 mg/dL Normal 200 [facility] Comment on above: Result Comment: <200 mg/dL Desirable 200-240 mg/dL Borderline >240 mg/dL High Risk Performed By: #### L 501.4405, L501.4100, L500.4100 #### [facility] [address] [place], [address] Cholesterol in HDL [Mass/Vol] 80 mg/dL Normal [facility] Comment on above: Result Comment: The drugs N-Acetylcysteine and Metamizole may falsely depress this assay. Reference Range HDL <40 mg/dL Low HDL Cholesterol HDL >or= 60 mg/dL High HDL Cholesterol Performed By: #### L 501.4405, L501.4100, L500.4100 #### [facility] [address] [place], [address] Cholesterol in LDL [Mass/Vol] 82 mg/dL Normal 0-130 [facility] Comment on above: Performed By: #### L 501.4405, L501.4100, L500.4100 #### [facility] [address] [place], [address] Cholesterol in VLDL [Mass/Vol] 28 mg/dL Normal 5-40 [facility] Comment on above: Performed By: #### L 501.4405, L501.4100, L500.4100 #### [facility] [address] [place], [address] Triglyceride [Mass/Vol] 141 mg/dL Normal [facility] Comment on above: Result Comment: The drugs N-Acetylcysteine and Metamizole may falsely depress this assay. Serum Triglycerides Reference Interval Normal <150 mg/dL Borderline high 150 - 199 mg/dL High 200 - 499 mg/dL Very High > or = 500 mg/dL Performed By: #### L 501.4405, L501.4100, L500.4100 #### [facility] [address] [place], [address] Absolute lymphocyte counton 09-17-2021 Lymphocytes Auto (Unsp spec) [#/Vol] 1.52 10*3/uL 0.83-4.51 [facility] Work Phone: Basophil percentageon 2021 Basophils/100 WBC (Bld) 0.4 % 0-1 [facility] Work Phone: Bilirubin [Mass/Vol] 0.50 mg/dL 0.20-1.[address] [facility] Work Phone: Comment on above: For patients on eltr ombopag therapy, use of Dimension Bath TBIL is not recommended. Chloride [Moles/Vol] 103 mmol/L 98-[address] [facility] Work Phone: Cholesterol [Mass/Vol] 184 mg/dL <200 [facility] Work Phone: Comment on above: <200 mg/dL Desirable 200-240 mg/dL Borderline >240 mg/dL High Risk Eosinophils/100 WBC (Bld) 0.4 % 0-5 [facility] Work Phone: Glucose [Mass/Vol] 97 mg/dL 74-106 [facility] Work Phone: Neutrophils (Bld) [#/Vol] 3.5 10*3/uL 2.0-7.7 [facility] Work Phone: Neutrophils/100 WBC (Bld) 64.4 % 47-70 [facility] Work Phone: Potassium [Moles/Vol] 4.0 mmol/L 3.5-5.1 [facility] Work Phone: Protein [Mass/Vol] 7.5 g/dL 6.4-8.2 [facility] Work Phone: Sodium [Moles/Vol] 138 mmol/L 136-145 [facility] Work Phone: Triglyceride [Mass/Vol] 146 mg/dL <199 [facility] Work Phone: Comment on above: The drugs N-Acetylcy steine and Metamizole may falsely depress this assay.Serum Triglycerides Reference Interval Normal <150 mg/dL Borderline high 150 - 199 mg/dL High 200 - 499 mg/dL Very High > or = 500 mg/dL WBC (Bld) [#/Vol] 5.5 10*3/uL 4.4-11.0 [facility] Work Phone: Blood erythrocytes count (nu mber/volume)on 09-17-2021 RBC (Bld) [#/Vol] 4.25 10*6/uL 4.2-5.4 [facility] Work Phone: Blood hemoglobin measurement (mass/volume)on 09-17-2021 Hemoglobin (Bld) [Mass/Vol] 13.6 g/dL 12.0-15.0 [facility] Work Phone: Blood lymphocytes/100 leukoc yteson 09-17-2021 Lymphocytes/100 WBC (Bld) 27.8 % 19-41 [facility] Work Phone: Blood monocytes/100 leukocyt eson 09-17-2021 Monocytes/100 WBC (Bld) 6.8 % 0-10 [facility] Work Phone: Blood platelet mean volumeon 09-17-2021 Platelet mean volume (Bld) [Entitic vol] 9.2 fL 6.2-12.0 [facility] Work Phone: Determination of erythrocyte mean corpuscular volume (MCV)on 09-17-2021 MCV (RBC) [Entitic vol] 92.9 fL 81-99 [facility] Work Phone: Hematocrit Auto (Bld) [Volum e fraction]on 09-17-2021 Hematocrit (Bld) [Volume fraction] 39.5 % 37-47 [facility] Work Phone: Laboratory - Chemistry and C hemistry - challengeon 09-17-2021 ALP [Catalytic activity/Vol] 35 U/L 45-117 [facility] Work Phone: ALT [Catalytic activity/Vol] 31 U/L 13-56 [facility] Work Phone: CO2 [Moles/Vol] 26.0 mmol/L 21.0-32.0 [facility] Work Phone: Cobalamin (Vitamin B12) [Mass/Vol] 271 pg/mL 211-911 [facility] Work Phone: Globulin (S) [Mass/Vol] 3.6 g/dL 2.2-4.2 [facility] Work Phone: Urea nitrogen/Creatinine [Mass ratio] 16.2 mg/mg 10-20 [facility] Work Phone: Laboratory - Hematology and Cell countson 09-17-2021 Erythrocyte distribution width (RBC) [Entitic vol] 43.8 fL 35.1-43.9 [facility] Work Phone: Erythrocyte distribution width (RBC) [Ratio] 12.9 % 11.6-14.6 [facility] Work Phone: Immature granulocytes/100 WBC (Bld) 0.200 % 0.0-0.9 [facility] Work Phone: Comment on above: IG% - Immature Granu locytes (promyelocytes, myelocytes and metamyelocytes) > 1% indicates that a LEFT SHIFT is Present. MCH (RBC) [Entitic mass] 32.0 pg 27.0-32.0 [facility] Work Phone: Nucleated RBC/100 WBC (Bld) [Ratio] 0 % 0-5 [facility] Work Phone: MCHC Auto (RBC) [Mass/Vol]on 09-17-2021 MCHC (RBC) [Mass/Vol] 34.4 g/dL 32-36 [facility] Work Phone: No Panel Informationon 09-17 Estimated GFR (MDRD) Amer 115 mL/min >60 [facility] Work Phone: Comment on above: GFR Calc Estimated GFR (MDRD) Non-Af Amer 95 mL/min >60 [facility] Work Phone: Comment on above: Non- GFR Calc Thyroid Stimulating Hormone (TSH) 2.53 uIU/mL 0.358-3.74 [facility] Work Phone: Vitamin D 25-Hydroxy 29.7 ng/mL [facility] Work Phone: Comment on above: Vitamin D 25(OH) Sta tus Range Deficiency <20 ng/mL (50nmol/L) Insufficiency 20 - 30 ng/mL (50 - 75 nmol/L) Sufficiency 30 - 100 ng/mL (75 - 250 nmol/L) Toxicity >100 ng/mL (>250 nmol/L) Platelets bldon 09-17-2021 Platelets (Bld) [#/Vol] 268 10*3/uL 150-450 [facility] Work Phone: Serum or plasma albumin demetris urement (mass/volume)on 09-17-2021 Albumin [Mass/Vol] 3.9 g/dL 3.2-5.0 [facility] Work Phone: Serum or plasma albumin/glob ulin mass ratioon 09-17-2021 Albumin/Globulin [Mass ratio] 1.1 {ratio} 0.9-2.4 [facility] Work Phone: Serum or plasma calcium demetris urement (mass/volume)on 09-17-2021 Calcium [Mass/Vol] 9.4 mg/dL 8.5-10.1 [facility] Work Phone: Serum or plasma cholesterol in HDL measurement (mass/volume)on 09-17-2021 Cholesterol in HDL [Mass/Vol] 80 mg/dL >40 [facility] Work Phone: Comment on above: The drugs N-Acetylcy steine and Metamizole may falsely depress this assay. Reference Range HDL <40 mg/dL Low HDL Cholesterol HDL >or= 60 mg/dL High HDL Cholesterol Serum or plasma cholesterol in VLDL measurement (mass/volume)on 09-17-2021 Cholesterol in VLDL [Mass/Vol] 29 mg/dL 5-40 [facility] Work Phone: Serum or plasma creatinine m easurement (mass/volume)on 09-17-2021 Creatinine [Mass/Vol] 0.68 mg/dL 0.55-1.02 [facility] Work Phone: Comment on above: The validity of the calculated GFR & GFRAA in patients over 70 years has not been determined. Clinical correlation is essential. Serum or plasma low density lipoprotein (LDL) cholesterol measurement (mass/volume)on 09-17-2021 Cholesterol in LDL [Mass/Vol] 75 mg/dL 0-130 [facility] Work Phone: Serum or plasma urea nitroge n measurement (mass/volume)on 09-17-2021 Urea nitrogen [Mass/Vol] 11 mg/dL 7-18 [facility] Work Phone: Thin prep Papanicolaou smear with manual screeningon 09-17-2021 Thin prep Papanicolaou smear with manual screening 23 U/L 15-37 [facility] Work Phone: Thin prep Papanicolaou smear with manual screening 9 5-15 [facility] Work Phone: Vital Signs Date Time Vital Sign Value Performing Clinician Faci lity 10-09-2024 06:00-0400 Body temperature 97.8 [degF] Dr. Angela Joseph MD Work Phone: [facility] 10-09-2024 06:00-0400 Diastolic blood pressure 78 mm[Hg] Dr. Angela Joseph MD Work Phone: [facility] 10-09-2024 06:00-0400 Heart rate 64 /min Dr. Angela Joseph MD Work Phone: [facility] 10-09-2024 06:00-0400 Respiratory rate 18 /min Dr. Angela Joseph MD Work Phone: [facility] 10-09-2024 06:00-0400 SaO2% (BldA) [Mass fraction] 99 % Dr. Angela Joseph MD Work Phone: [facility] 10-09-2024 06:00-0400 Systolic blood pressure 134 mm[Hg] Dr. Angela Joseph MD Work Phone: [facility] 10-09-2024 03:36-0400 Body height 157.[address] Angela Joseph MD Work Phone: [facility] 10-09-2024 03:36-0400 Body mass index (BMI) [Ratio] 29.2 kg/m2 Dr. Angela Joseph MD Work Phone: [facility] 10-09-2024 03:36-0400 Body weight 72.[address] Angela Joseph MD Work Phone: [facility] Encounters Encounter Date Encounter Type Care Provider Facility Start: 10-09-2024 End: 10-09-2024 Emergency department patient visit Dr. Angela Joseph MD Work Phone: -Emergency Department Work Phone: Start: 01-18-2024 End: [facility] Start: 01-12-2024 End: 01-12-2024 [facility] Start: 01-16-2023 End: 01-16-2023 ambulatory [facility] Work Phone: Start: 01-16-2023 End: 01-16-2023 Patient encounter procedure [facility] Work Phone: Start: 09-27-2021 End: 09-27-2021 Patient encounter procedure [facility] Start: 09-17-2021 End: 09-17-2021 Patient encounter [facility] Procedures Date Procedure Procedure Detail Performing Clinician Start: 01-16-2023 Screening mammography Start: 09-27-2021 Screening mammography Plan of Treatment Date Care Activity Detail Author Start: 10-09-2024 [facility] Patient Education Understanding Hives (Urticaria) ED Anaphylaxis [facility] Work Phone: Immunizations Immunization Date Immunization Notes Care Provider Fa cility 07-05-2020 Covid (Pfizer) [facility] 06-14-2020 Covid (Pfizer) [facility] Payers Date Payer Category Payer Private Health Insurance [id number] 2023 Self-pay [id number] 2015 Private Health Insurance [id number] Unknown [id number] Unknown [id number] Social History Date Type Detail Facility Start: 03-06-2017 Tobacco smoking status NHIS Unknown if ever smoked [facility] Start: 03-06-2017 Occasional [facility] Start: 03-06-2017 None [facility] Start: 03-06-2017 Spouse/ Signif icant Other [facility] Start: 03-06-2017 Non-smoker [facility] Start: 1965 Sex Assigned At Female W [facility] Start: 10-09-2024 Tobacco smoking status NHIS Never smoked tobacco (finding) [facility] Medical Equipment Procedure Code Equipment Code Equipment [...] Evaluation note No assessment information availa ble [facility] Work Phone: Hospital Discharge instructions Note Date & Type Note Facility Hospital Discharge instructions Additional Instructions Return back to ED if symptoms change or worsen. Follow-up with your primary care physician. You received all of your medication today here in the emergency department, next dose is to start tomorrow. Benadryl as needed for hives. EpiPen as needed. [facility] Work Phone: Reason for referral (narrative) Note Date & Type Note Facility Reason for referral (narrative) No reason for referral information available [facility] Work Phone: Family History Relationship Condition Age at Onset Recorded Date/T corby Unknown Family History?Cancer, Diabetes Unknown March 06, 2017 10:55am Family History?Cancer, Diabetes Unknown March 06, 2017 10:55am Family History?Diabetes Unknown Dece mber 2016 10:55am Advance Directives Advance Directive Response Recorded Date/ Time Living Will No February 26 017 10:37am Power of Sprayer Machine No February 26, 2017 10:37am Advance Directive Response Recorded Date/ Time Do you have a Healthcare Power of Sprayer Machine? No October 09, 2024 3:36am Chief Complaint and Reason for Visit Chief Complaint SCREENING Chief Complaint SCREENING Chief Complaint Admit Date allergic rxn October 09, 2024 3:36 am Summary Purpose Additional Source Comments Goals (unrecognized [...] Prov ider, Attending Provider, Referring Provider Active Team Status: Active Member Role/Relationship Status Dates Dr. Angela Joseph MD Primary Care Provider Active Team Status: Inactive Member Role/Relationship Status Dates Dr. Angela Joseph MD Primary Care Provider Active Start: October 09, 2024 End: October 09, 2024 Dr. Dinesh Raygoza DO Emergency Provider Activ e Start: October 09, 2024 End: October 09, 2024 INFORMATION SOURCE (unrecogn ized section and content) DATE CREATED AUTHOR 02/10/2024 [facility] FOR RECORDS PERTAINING TO PATIENTS WHO ARE [...] BE BASED ON THE PRIMARY CLINICAL RECORDS. [facility] [employer] [facility]. provides no warranty or guarantee of the accuracy or completeness of information in this document.
[2024-10-09] MEDS: Epi Pen (EQUIV) 0.3 MG Syringe IM (19:17)
[2024-10-09] MEDS: Famotidine 200 MG/20 ML MDV 20 MG in 0.9% Normal Saline (Pres. free 8 ML 300 MG IV (19:37)
[2024-10-09 19:38] VITALS: BP 156/76; PULSE 108; RESP 18; O2SAT 96
[2024-10-09 20:54] VITALS: BP 159/64; PULSE 107; RESP 18; TEMP 36.7; O2SAT 96
== END 2024-10-09 20:56 | disposition home or self-care (01) ==
PROVIDERS: Emergency Provider Emergency Medicine; PCP Family Medicine; Visit Provider Emergency Medicine
DX: T78.2XXA Anaphylactic shock, unspecified, initial encounter (principal); X58.XXXA Exposure to other specified factors, initial encounter
CPT/HCPCS: 96365; 96372; 99284; A4216

== ENCOUNTER → 2025-02-03 | Outpatient (CLI) | payer OTHER, SELFPAY ==
--- NOTE | 2025-02-03 08:15 | BI_ITS ---
EXAM: BI/SCRN MAMM (CAD)W/GUMARO BILAT
== END | disposition home or self-care (01) ==
LOC: OPBI 08:05
PROVIDERS: PCP Family Medicine; Referring Provider Family Medicine; Visit Provider Family Medicine
DX: Z12.31 Encounter for screening mammogram for malignant neoplasm of breast (principal)
CPT/HCPCS: 77063; 77067